=== PATIENT | male | born 1960 | race Caucasian/White ===

== ENCOUNTER 2020-05-16 20:16 | Emergency (ER) | payer BC ==
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
== END 2020-05-16 21:15 | disposition home or self-care (01) ==
LOC: FB.ED 20:16
DX: S63.23 Subluxation of proximal interphalangeal joint of finger (principal); Z79.82 Long term (current) use of aspirin; V19.9XXA Pedal cyclist (driver) (passenger) injured in unspecified traffic accident, initial encounter
CPT/HCPCS: 26770; 73140-F6; 99283; 99283-25